=== PATIENT | female | born 1950 | race Caucasian/White ===

== ENCOUNTER 2018-03-26 09:06 | Emergency (ER) | payer MEDICARE ==
[2018-03-26] MEDS ORDERED: Gelfoam 100 COMPRESSED* SPONGE TOPICAL ONE (09:47)
[2018-03-26] MEDS ORDERED: Gelfoam 12-7 ADSORBABL SPONGE* 1 EA SPONGE ONE (09:50)
--- NOTE | 2018-03-26 09:58 | UC ---
Skin Complaint HPI - HPI Summary HPI Summary: Pt presents with c/o of laceration to right distal index finger. Pt had finger "pinched' in car door and now c/o "chunk" of skin missing to distal right index finger. Pt is on "blood thinners' and is unable to stop bleeding. - History of Current Complaint Chief Complaint: UCLaceration Time Seen by Provider: 03/26/18 09:34 Stated Complaint: CUT ON R FINGER (PATIENT ON BLOODTHINNERS) Hx Obtained From: Patient ?: No Onset/Duration: Sudden Onset, Still Present Skin Exposure Onset/Duration: Hours Ago Timing: Constant Onset Severity: Mild Current Severity: Mild Pain Intensity: 0 Location: Discrete, Hand (Right) Character: Pain, Painful Aggravating Factor(s): Touch Alleviating Factor(s): Other - dressing Associated Signs & Symptoms: Positive: Tenderness Related History: Trauma - Allergy/Home Medications Allergies/Adverse Reactions: Allergies Allergy/AdvReac Type Severity Reaction Status Date / Time No Known Allergies Allergy Verified 03/26/18 09:30 Home Medications: Home Medications Apixaban* [Eliquis*] 5 mg PO BID 03/26/18 [History Confirmed 03/26/18] Metoprolol Tartrate TAB* [Lopressor TAB*] 25 mg PO DAILY 03/26/18 [History Confirmed 03/26/18] Omeprazole CAP* [Prilosec CAP* 20 MG] 20 mg PO DAILY 03/26/18 [History Confirmed 03/26/18] Simvastatin (NF) [Zocor (NF)] 80 mg PO DAILY 03/26/18 [History Confirmed ] Valsartan/HCTZ 320/12.5(NF) [Diovan Hct 320/12.5(NF)] 1 tab PO DAILY 03/26/18 [ History Confirmed 03/26/18] Vitamin THERAPEUTIC TAB* [Theragran TAB*] 1 tab PO DAILY 03/26/18 [History Confirmed 03/26/18] Review of Systems All Other Systems Reviewed And Are Negative: Yes Constitutional: Positive: Negative Skin: Positive: Other - bleeding, skin avulsion right distal index finger, anterior Eyes: Positive: Negative ENT: Positive: Negative Respiratory: Positive: Negative Cardiovascular: Positive: Negative Gastrointestinal: Positive: Negative Genitourinary: Positive: Negative Motor: Positive: Negative Neurovascular: Positive: Negative Musculoskeletal: Positive: Myalgia - at wound site Neurological: Positive: Negative Psychological: Positive: Negative Is Patient Immunocompromised?: No PMH/Surg Hx/FS Hx/Imm Hx Previously Healthy: Yes Cardiovascular History: Cardiac Disease - Surgical History Surgical History: Yes Surgery Procedure, Year, and Place: Pilonidal Cysts, Hysterectomy - Family History Known Family History: Positive: Cardiac Disease - Social History Occupation: Retired Lives: With Family Alcohol Use: Occasionally Substance Use Type: None Smoking Status (MU): Former Smoker Length of Time of Smoking/Using Tobacco: 1 PPD x 15 Years Have You Smoked in the Last Year: No When Did the Patient Quit Smoking/Using Tobacco: ~1982 - Immunization History Most Recent Tetanus Shot: "Many years ago..." Physical Exam Triage Information Reviewed: Yes Appearance: Well-Appearing, No Pain Distress Vital Signs: Initial Vital Signs Temp 98.1 F 03/26/18 09:28 Pulse 70 03/26/18 09:28 Resp 16 03/26/18 09:28 BP 138/63 03/26/18 09:28 Pulse Ox 99 03/26/18 09:28 Vital Signs Reviewed: Yes Eye Exam: Normal ENT Exam: Normal Dental Exam: Normal Neck exam: Normal Respiratory: Positive: No respiratory distress Musculoskeletal Exam: Normal Musculoskeletal: Positive: Strength Intact, ROM Intact Neurological Exam: Normal Psychological Exam: Normal Skin Exam: Other - skin avulsion distal anterior right index ~ 1 cm X 1 cm Course/Dx - Course Course Of Treatment: gel foam applied, pressure dressing applied. Pt instructed to f/u with pcp in 2 days. - Diagnoses Provider Diagnoses: skin avulasion right index finger Discharge - Sign-Out/Discharge Documenting (check all that apply): Patient Departure All imaging exams completed and their final reports reviewed: No Studies - Discharge Plan Condition: Stable Disposition: HOME Patient Education Materials: Skin Avulsion (ED) Referrals: Des Watson DO [Primary Care Provider] - 2 Days - Billing Disposition and Condition Condition: STABLE Disposition: Home - Attestation Statements Provider Attestation: Per institutional requirements, I have reviewed the chart, however, I was not consulted specifically or made aware of this patient by the midlevel provider. I did not personally evaluate, interact with , or disposition this patient.
[2018-03-26] MEDS ORDERED: Tetan/Diph/Pertus SYR(Tdap)* 0.5 ML SYR(BOOSTRIX) use SYR IM ONE (10:01)
== END 2018-03-26 10:11 | disposition home or self-care (01) ==
LOC: UCCORT 09:06
DX: S61.210A Laceration without foreign body of right index finger without damage to nail, initial encounter (principal); Z79.01 Long term (current) use of anticoagulants; W23.1XXA Caught, crushed, jammed, or pinched between stationary objects, initial encounter; Y92.9 Unspecified place or not applicable
CPT/HCPCS: 90471; 90715; 99202; A9270-GY; G0463

== ENCOUNTER 2020-03-06 06:19 | Observation (INO) ==
[~2020-03-06 06:19] MED LIST: Buffered Lidocaine 1% SYRIN 1 ml INTRADERM ONE; Lactated Ringers 1000 ml BAG 1,000 ML IV SCH
[2020-03-06] MEDS ORDERED: ceFAZolin 2 GM in NS PREMIX 2 GM/100 ML BAG IVPB ONE (06:54)
[2020-03-06] MEDS ORDERED: Buffered Lidocaine 1% SYRIN 1 ml INTRADERM ONE (06:54)
[2020-03-06] MEDS ORDERED: fentaNYL 250 mcg/5 ml 50 MCG/ML 5 ml VIAL (250 MCG) ONE (07:18)
[2020-03-06] MEDS ORDERED: Lidocaine 2% PF 5 ML VIAL ONE (07:18)
[2020-03-06] MEDS ORDERED: Midazolam 2 mg/2 ml VIAL 1 mg/ml 2 ml VIAL (2 mg) ONE ×2 (07:18→08:52)
[2020-03-06] MEDS ORDERED: fentaNYL 100 mcg/2 ml 50 MCG/ML VIAL ONE (07:19)
[2020-03-06] MEDS ORDERED: ROPIVACAINE 5 MG/ML 30 ML BTL (0.5%) ONE ×2 (07:21→07:22)
[2020-03-06] MEDS ORDERED: diPHENhydraMINE IV 50 MG/ML 1 ml VIAL (BENADRYL) IV PRN ×2 (07:58→11:35)
[2020-03-06] MEDS ORDERED: Ondansetron 4 mg VIAL 2 MG/ML 2 ml VIAL IV PRN ×2 (07:58→11:35)
[2020-03-06] MEDS ORDERED: Naloxone 0.4 mg VIAL 0.4 mg/ml 1 ml VIAL IV PRN (07:58)
[2020-03-06] MEDS ORDERED: Phenylephrine 40 mcg/mL 10mL (400mcg) SYRINGE ONE (09:20)
[2020-03-06] MEDS ORDERED: EPHEDrine (Pressors) 50 MG/ML VIAL ONE (09:39)
[2020-03-06] MEDS ORDERED: Ondansetron ODT 4 mg TAB 4 MG TAB PO PRN (11:35)
[2020-03-06] MEDS ORDERED: oxyCODONE/Acetamin 5/325 mg TAB PO PRN ×2 (11:35)
[2020-03-06] MEDS ORDERED: Morphine 2 MG/ML SYRINGE IV PRN (11:35)
[2020-03-06] MEDS ORDERED: Magnesium Hydroxide LIQ 30 ML UDC PO PRN (11:35)
[2020-03-06] MEDS ORDERED: diPHENhydraMINE 25 mg TAB PO PRN (11:35)
[2020-03-06] MEDS ORDERED: Lactulose 30 ml UDC PO PRN (11:35)
[2020-03-06] MEDS ORDERED: HYDROmorphone 1 MG/1 ML SYRINGE ONE (11:59)
[2020-03-06] MEDS: HYDROmorphone 1 MG/1 ML SYRINGE IV PRN ×3 (12:00→12:26)
[2020-03-06] MEDS: Lactated Ringers 1000 ml BAG 1,000 ML IV SCH (12:53)
[2020-03-06] MEDS: ceFAZolin 1 GM ADVAN 1 GM in NS 0.9% 50 ML 50 ML IVPB SCH (17:08)
[2020-03-06] MEDS ORDERED: Magnesium Hydroxide LIQ 30 ML UDC ONE (21:04)
[2020-03-06] MEDS ORDERED: oxyCODONE/Acetamin 5/325 mg TAB ONE (21:06)
[2020-03-06] MEDS: Magnesium Hydroxide LIQ 30 ML UDC PO SCH (21:11)
[2020-03-07] MEDS ORDERED: Polyethylene Glycol 3350 17 GM PACKET PO PRN (00:01)
[2020-03-07] MEDS: Lactated Ringers 1000 ml BAG 1,000 ML IV SCH (00:36)
[2020-03-07] MEDS: ceFAZolin 1 GM ADVAN 1 GM in NS 0.9% 50 ML 50 ML IVPB SCH ×2 (00:37→08:27)
[2020-03-07 07:03] LABS: Hematocrit 30 % (35-47); Mean Platelet Volume 8.9 fL (7.4-10.4); Platelet Count 223 10^3/uL (150-450)
[2020-03-07 07:20] LABS: BUN/Creatinine Ratio 25.3 (8-20); Calcium 8.9 mg/dL (8.6-10.3); EGFR African American 92.2 (>60); EGFR Non-African American 76.2 (>60); Potassium 4.6 mmol/L (3.5-5.0)
[2020-03-07] MEDS ORDERED: Vitamin THERAPEUTIC TAB ONE (08:21)
[2020-03-07] MEDS: Magnesium Hydroxide LIQ 30 ML UDC PO SCH (08:30)
[2020-03-07] MEDS ORDERED: Vitamin THERAPEUTIC TAB PO SCH (09:00)
[2020-03-07] MEDS ORDERED: Valsartan/HCTZ 320/12.5(NF) TAB PO SCH (09:00)
[2020-03-07 11:12] VITALS: BP 112/62
== END 2020-03-07 13:33 | disposition home or self-care (01) ==
LOC: AA 06:19 → INTOOBSV 06:19 → SSU 12:59
PROVIDERS: ADMIT Orthopaedic Surgery Adult Reconstructive Orthopaedic Surgery; ATTEND Orthopaedic Surgery Adult Reconstructive Orthopaedic Surgery

== ENCOUNTER 2023-02-22 06:22 | Observation (INO) ==
[~2023-02-22 06:22] MED LIST changes: +HYDROmorphone 1 MG/1 ML SYRINGE IV PRN; +Naloxone 0.4 mg VIAL 0.4 mg/ml 1 ml VIAL IV PRN; +Ondansetron 4 mg VIAL 2 MG/ML 2 ml VIAL IV PRN; +fentaNYL 100 mcg/2 ml 50 MCG/ML VIAL IV PRN
[2023-02-22] MEDS ORDERED: ceFAZolin 2 GM PREMIX 2 GM/50 ML BAG ONE (06:46)
[2023-02-22] MEDS ORDERED: Tranexamic Acid 1 GM/100ML BAG 2,000 MG/200 ML BAG IV ONE (06:46)
[2023-02-22] MEDS ORDERED: Dexamethasone IV 4 MG/ML VIAL 1 ml VIAL ONE (06:48)
[2023-02-22] MEDS ORDERED: Ondansetron 4 mg VIAL 2 MG/ML 2 ml VIAL ONE (06:48)
[2023-02-22] MEDS ORDERED: Phenylephrine 40 mcg/mL 10mL (400mcg) SYRINGE ONE (06:48)
[2023-02-22] MEDS ORDERED: Glycopyrrolate IV 0.2 MG/ML 1 ML VIAL ONE (06:48)
[2023-02-22] MEDS ORDERED: Phenylephrine IV 10 MG/ML 1 ml VIAL ONE (06:48)
[2023-02-22] MEDS ORDERED: Lidocaine 2% PF 5 ML VIAL ONE (06:48)
[2023-02-22] MEDS ORDERED: fentaNYL 100 mcg/2 ml 50 MCG/ML VIAL ONE (06:49)
[2023-02-22] MEDS ORDERED: Midazolam 2 mg/2 ml VIAL 1 mg/ml 2 ml VIAL (2 mg) ONE ×2 (06:50→10:39)
[2023-02-22] MEDS ORDERED: ROPIVACAINE 5 MG/ML 30 ML BTL (0.5%) ONE (06:57)
[2023-02-22 07:06] LABS: Rapid COVID-19 Molecular Undetected (Undetected)
[2023-02-22] MEDS ORDERED: Lidocaine 1% MPF 5 ML VIAL ONE (07:36)
[2023-02-22] MEDS ORDERED: Ropivacaine 5 MG/ML 20 ML VIAL 0.5% (100 MG) ONE (07:36)
[2023-02-22] MEDS ORDERED: KETAMINE HCL 10 MG/ML 20 ml VIAL (200 MG) ONE (09:12)
[2023-02-22] MEDS ORDERED: Propofol 10 MG/ML 20 ML BTL ONE (10:15)
[2023-02-22] MEDS ORDERED: Sevoflurane BOTTLE ONE (10:29)
[2023-02-22] MEDS ORDERED: Morphine 2 MG/ML SYRINGE IV PRN (10:39)
[2023-02-22] MEDS ORDERED: Ondansetron 4 mg VIAL 2 MG/ML 2 ml VIAL IV PRN (10:39)
[2023-02-22] MEDS ORDERED: Magnesium Hydroxide LIQ 30 ML UDC PO PRN (10:39)
[2023-02-22] MEDS ORDERED: Lactulose 30 ml UDC PO PRN (10:39)
[2023-02-22] MEDS ORDERED: Ondansetron ODT 4 mg TAB 4 MG TAB PO PRN (10:39)
[2023-02-22] MEDS: Lactated Ringers 1000 ml BAG 1,000 ML IV SCH (13:29)
[2023-02-22] MEDS: ceFAZolin 1 GM ADVAN 1 GM in NS 0.9% 50 ML 50 ML IVPB SCH (16:46)
[2023-02-22] MEDS: Magnesium Hydroxide LIQ 30 ML UDC PO SCH (21:11)
[2023-02-23] MEDS: ceFAZolin 1 GM ADVAN 1 GM in NS 0.9% 50 ML 50 ML IVPB SCH ×2 (00:59→08:38)
[2023-02-23] MEDS: Lactated Ringers 1000 ml BAG 1,000 ML IV SCH (03:06)
[2023-02-23 07:02] LABS: Hematocrit 28.8 % (35-45); Hemoglobin 9.7 g/dL (11.5-14.3); Mean Platelet Volume 8.9 fL (7.5-11.2); Platelet Count 243 10^3/uL (150-450)
[2023-02-23 07:44] LABS: Calcium 9.1 mg/dL (8.6-10.3); Creatinine, Serum 1.02 mg/dL (0.51-0.95); Potassium 4.5 mmol/L (3.5-5.0); eGFR CKD-EPI 57.7 (>60)
[2023-02-23] MEDS: Magnesium Hydroxide LIQ 30 ML UDC PO SCH (08:39)
[2023-02-23] MEDS ORDERED: Vitamin THERAPEUTIC TAB PO SCH (09:00)
[2023-02-23] MEDS ORDERED: NS 0.9% 1000 ml BAG 1,000 ML IV SCH (09:15)
[2023-02-23 10:39] VITALS: BP 131/59
== END 2023-02-23 12:55 | disposition home or self-care (01) ==
LOC: AA 06:22 → INTOOBSV 06:22 → SSU 12:25
PROVIDERS: ADMIT Orthopaedic Surgery Adult Reconstructive Orthopaedic Surgery; ATTEND Orthopaedic Surgery Adult Reconstructive Orthopaedic Surgery